=== PATIENT | male | born 1990 | race Caucasian/White ===

== ENCOUNTER 2018-07-26 04:37 | Emergency (ER) | payer SELFPAY ==
--- NOTE | 2018-07-26 05:01 | PDOC ---
Attending Attestation - Resident Resident Name: Trae Dalton - ED Attending Attestation I have performed the following: I have examined & evaluated the patient, The case was reviewed & discussed with the resident, I agree w/resident's findings & plan - HPI HPI: 07/26/18 06:44 Pt comes with left sided CP. - Physicial Exam PE: 07/26/18 06:44 Pt has no fever. HEENT normal Chest [id number] Lungs CTA B Abd soft NT ND normal BS flank:No pain Ext: No edema no cyanosis or clubbing Sensorimotor intact. CN2-12 intact; strength 5/5 bilat. - Medical Decision Making 07/26/18 06:46 Labs CXR and exam normal.Pt can go home. LFTs slightly elevated. Pt states that this is an old finding. Discharge Disposition - Diagnosis Atypical chest pain - Discharge Dispostion Disposition: HOME Condition at time of disposition: Improved Decision to Admit order: No - Referrals Referrals: Judson Urias MD [Staff Physician] - - Patient Instructions Printed Discharge Instructions: DI for Atypical Chest Pain - Post Discharge Activity
[2018-07-26] MEDS ORDERED: ASPIRIN 81 MG CHEWABLE TABLETS PO ONE (05:03)
[2018-07-26 05:13] VITALS: TEMP 98.4; BMI 33.5
[2018-07-26 05:20] LABS: BASO % 0.2 % (0-2.0); EOS % 1.5 % (0-4.5); HEMATOCRIT 42.8 % (35.4-49); HEMOGLOBIN 15.1 GM/dL (11.7-16.9); LYMPH % 21.2 % (8-40); MCH 30.3 pg (25.7-33.7); MCHC 35.4 g/dl (32.0-35.9); MEAN CELL VOLUME 85.8 fl (80-96); MEAN PLT VOLUME 7.8 fl (7.5-11.1); MONO % 9.6 % (3.8-10.2); NEUT % 67.5 % (42.8-82.8); PLATELET COUNT 225 K/MM3 (134-434); RBC 4.99 M/mm3 (4.00-5.60); RDW 13.1 % (11.9-15.9); WHITE BLOOD COUNT 4.7 K/mm3 (4.0-10.0)
[2018-07-26 05:35] LABS: INR 0.99 (0.83-1.09); PROTHROMBIN TIME (PATIENT) 11.7 SEC (9.7-13.0)
[2018-07-26 05:53] VITALS: PULSE 69
[2018-07-26 06:07] LABS: ALBUMIN 3.8 g/dl (3.4-5.0); ALK PHOS 122 U/L (45-117); ANION GAP 6 MMOL/L (8-16); BILIRUBIN,TOTAL 0.4 mg/dL (0.2-1); BLOOD UREA NITROGEN 13 mg/dL (7-18); CALCIUM 8.2 mg/dL (8.5-10.1); CHLORIDE 108 mmol/L (98-107); CO2 24 mmol/L (21-32); CREATININE 0.7 mg/dL (0.55-1.3); GLUCOSE,RANDOM 106 mg/dL (74-106); POTASSIUM 3.6 mmol/L (3.5-5.1); SGOT/AST 66 U/L (15-37); SGPT/ALT 246 U/L (13-61); SODIUM 137 mmol/L (136-145); TOT PROT 7.5 g/dl (6.4-8.2)
[2018-07-26 06:58] VITALS: BP 99/58
--- NOTE | 2018-07-26 13:12 | EKG ---
Test Reason : Blood Pressure : / mmHG Vent. Rate : 091 BPM Atrial Rate : 091 BPM P-R Int : 154 ms QRS Dur : 086 ms QT Int : 342 ms P-R-T Axes : 047 075 000 degrees QTc Int : 420 ms NORMAL SINUS RHYTHM NORMAL ECG NO PREVIOUS ECGS AVAILABLE Confirmed by MD JOHN, RENNY ([id number]) on 07/26/2018 1:12:00 PM Referred By: Confirmed By:RENNY LOPEZ MD
== END 2018-07-26 07:04 | disposition home or self-care (01) ==
LOC: JER 04:37
DX: R07.9 Chest pain, unspecified (principal)
CPT/HCPCS: 36415; 71046-TC-FY; 80053; 82550; 84484; 85025; 85610; 93005; 93010; 99283-25